=== PATIENT | female | born 1990 | race Caucasian/White ===

== ENCOUNTER 2017-05-16 06:38 | Inpatient (IN) | payer OTHER ==
[2017-05-13 10:48] VITALS: BMI 49.6
[~2017-05-16 06:38] MED LIST: BUPIVACAINE HCL/PF 0.25% (2.5MG/ML) 10 ML VIAL IJ ONE
[2017-05-16] MEDS ORDERED: SUCCINYLCHOLINE CHLORIDE 200 MG/10 ML VIAL ONE ×2 (07:35→08:47)
[2017-05-16] MEDS ORDERED: PROPOFOL 20 ML ONE ×4 (07:35→08:45)
[2017-05-16] MEDS ORDERED: MIDAZOLAM HCL 2 MG/2 ML SINGLE DOSE VIAL ONE (07:35)
[2017-05-16] MEDS ORDERED: ePHEDrine SULFATE 50 MG/1 ML AMPULE ONE (07:36)
[2017-05-16] MEDS ORDERED: ROCURONIUM BROMIDE 50 MG/5 ML VIAL ONE ×3 (07:39→09:06)
[2017-05-16] MEDS ORDERED: BUPIVACAINE HCL/PF 0.25% (2.5MG/ML) 10 ML VIAL ONE (08:45)
[2017-05-16] MEDS ORDERED: ESMOLOL HCL 10 ML ONE (09:19)
[2017-05-16] MEDS ORDERED: NEOSTIGMINE METHYLSULFATE 0.5 MG/ML - 10 ML MDV ONE ×2 (09:58→10:05)
[2017-05-16] MEDS ORDERED: BUPIVACAINE HCL/PF 0.25% (2.5MG/ML) 10 ML VIAL IJ ONE (10:05)
[2017-05-16] MEDS ORDERED: ONDANSETRON 4 MG/2 ML VIAL IVPB PRN (10:14)
[2017-05-16] MEDS ORDERED: HYDROmorphone HCL/PF 1 MG/ML VIAL (FOR PYXIS CHARGING ONLY) ONE (10:15)
[2017-05-16] MEDS ORDERED: KETOROLAC TROMETHAMINE 30 MG/1 ML VIAL ONE (10:17)
[2017-05-16] MEDS ORDERED: ONDANSETRON 4 MG/2 ML VIAL IVPUSH PRN (10:28)
[2017-05-16] MEDS: HYDROmorphone HCL CARPU-JECT 1 MG/1 ML DISP.SYRIN IVPUSH PRN ×4 (10:30→11:00)
[2017-05-16] MEDS ORDERED: METOCLOPRAMIDE HCL INJECTION 10 MG/2 ML VIAL IVPB SCH (10:30)
[2017-05-16] MEDS ORDERED: HYDROmorphone HCL CARPU-JECT 2 MG/1 ML DISP.SYRIN ONE ×2 (10:31→14:37)
[2017-05-16 11:01] LABS: MCH 27.3 pg (25.7-33.7); MCHC 32.7 g/dl (32.0-36.0); MEAN CELL VOLUME 83.5 fl (80-96); MEAN PLT VOLUME 7.2 fl (7.5-11.1); PLATELET COUNT 419 K/MM3 (134-434); RDW 14.9 % (11.6-15.6); WHITE BLOOD COUNT 21.6 K/mm3 (4.0-10.0)
[2017-05-16] MEDS: HYDROmorphone HCL CARPU-JECT 1 MG/1 ML DISP.SYRIN IVPB PRN ×3 (11:05→20:29)
[2017-05-16] MEDS ORDERED: DESFLURANE GAS 240 ML BOTTLE IH ONE (11:09)
[2017-05-16 11:30] LABS: ALBUMIN 3.4 g/dl (3.4-5.0); ANION GAP 9 (8-16); CALCIUM 8.4 mg/dL (8.5-10.1); CO2 24 mmol/L (21-32); CREATININE 0.6 mg/dL (0.55-1.02); GLUCOSE,RANDOM 166 mg/dL (74-106); SGOT/AST 44 U/L (15-37); SGPT/ALT 39 U/L (12-78)
[2017-05-16 11:31] LABS: ALK PHOS 92 U/L (45-117); BILIRUBIN,TOTAL 0.2 mg/dL (0.2-1.0); TOT PROT 6.3 g/dl (6.4-8.2)
[2017-05-16] MEDS ORDERED: HYDROmorphone HCL CARPU-JECT 1 MG/1 ML DISP.SYRIN IVPUSH PRN (12:13)
[2017-05-16 12:52] LABS: TOTAL CELLS COUNTED 100
[2017-05-16 12:55] LABS: PLATELET ESTIMATE ADEQUATE
[2017-05-16] MEDS: SODIUM CHLORIDE 1,000 ML IV SCH (14:00)
[2017-05-16] MEDS: METOCLOPRAMIDE HCL INJECTION 10 MG/2 ML VIAL IVPB SCH ×2 (18:31→21:10)
--- NOTE | 2017-05-16 18:55 | HOSP ---
Subjective - Review of Symptoms Subjective: Called by RN. 26 yo F s/p gastric sleeve complaining of chest pain. Pain began 15 minutes ago. It is mid chest, substernal, non radiating, pleuritic, 10/10, pressure like. Patient denies any SOB, n/v, or any other symptoms. Patient is in pain. Physical examination: General- NAD CV- s1/s2 RRR Lungs- CTAB A/P -Stat EKG and troponins performed -RN to get a hold of primary team Physical Examination Vital Signs: Vital Signs Temperature 99.0 F 05/16/17 14:45 Pulse Rate 106 H 05/16/17 14:45 Respiratory Rate 16 05/16/17 14:45 Blood Pressure 117/65 05/16/17 14:45 O2 Sat by Pulse Oximetry (%) 97 05/16/17 14:35 Labs: CBC, BMP 05/16/17 10:57 05/16/17 10:57 Visit type - Emergency Visit Emergency Visit: No - New Patient This patient is new to me today: Yes Date on this admission: 05/16/17 - Critical Care Critical Care patient: No
[2017-05-16] MEDS: LACTATED RINGERS SOLUTION 1,000 ML IV SCH (19:17)
[2017-05-16] MEDS: FAMOTIDINE 20 MG/50 ML IVPB 50 ML IVPB SCH (21:10)
[2017-05-16] MEDS: ENOXAPARIN NA (PORCINE) 40 MG/0.4 ML DISP.SYRIN SQ SCH (21:10)
[2017-05-17] MEDS: METOCLOPRAMIDE HCL INJECTION 10 MG/2 ML VIAL IVPB SCH ×3 (02:45→15:02)
[2017-05-17] MEDS: HYDROmorphone HCL CARPU-JECT 1 MG/1 ML DISP.SYRIN IVPB PRN ×2 (06:27→10:54)
[2017-05-17 06:55] LABS: MCH 27.3 pg (25.7-33.7); MCHC 32.7 g/dl (32.0-36.0); MEAN CELL VOLUME 83.6 fl (80-96); MEAN PLT VOLUME 7.8 fl (7.5-11.1); PLATELET COUNT 389 K/MM3 (134-434); RDW 14.5 % (11.6-15.6); WHITE BLOOD COUNT 18.6 K/mm3 (4.0-10.0)
[2017-05-17 07:29] LABS: ALBUMIN 3.1 g/dl (3.4-5.0); ALK PHOS 83 U/L (45-117); ANION GAP 9 (8-16); BILIRUBIN,TOTAL 0.5 mg/dL (0.2-1.0); CO2 27 mmol/L (21-32); CREATININE 0.4 mg/dL (0.55-1.02); GLUCOSE,RANDOM 86 mg/dL (74-106); SGOT/AST 33 U/L (15-37); SGPT/ALT 28 U/L (12-78); TOT PROT 5.7 g/dl (6.4-8.2)
[2017-05-17] MEDS: ENOXAPARIN NA (PORCINE) 40 MG/0.4 ML DISP.SYRIN SQ SCH (09:16)
[2017-05-17] MEDS: FAMOTIDINE 20 MG/50 ML IVPB 50 ML IVPB SCH (09:16)
--- NOTE | 2017-05-17 09:32 | OP ---
DATE OF OPERATION: 05/16/2017 PREOPERATIVE DIAGNOSIS: Morbid obesity. POSTOPERATIVE DIAGNOSIS: Morbid obesity. PROCEDURE PERFORMED: 1. Laparoscopic vertical sleeve gastrectomy. 2. Diagnostic laparoscopy. OPERATING SURGEON: Kaylan Johnson MD PACKAGING DESIGN ENGINEER: Serge Ying MD ANESTHESIA: General. OPERATIVE PROCEDURE: The patient was brought into the operating room, placed on the OR table in the supine position. All precautions were taken initially including padding for the back and the feet, and Venodyne boots were placed on both lower extremities. At that point, the abdomen was prepped and draped in the usual manner. A Veress needle was placed in the left upper quadrant, and a pneumoperitoneum was established. A No. 12 bladeless trocar was placed in the left upper quadrant. Through that trocar, a laparoscopic camera was placed. Under direct vision, a No. 15 bladeless trocar was placed in the midline in a supraumbilical position followed by a No. 5 bladeless trocar in the right upper quadrant and a No. 5 bladeless trocar 2 fingerbreadths below the left costal margin. A Jim Liver Retractor was then placed in the epigastrium to retract the left lobe of the liver. The patient was then placed in 20-degree reverse Trendelenburg position by Anesthesia. The pylorus was noted on the distal stomach, and 6 cm were measured proximally from that point. Here on the greater curve, the operating surgeon lifted the stomach towards the anterior abdominal wall. The insurance account assistant surgeon retracted the gastrocolic ligament inferiorly. The LigaSure device was used to dissect the gastrocolic ligament off the greater curve of the stomach. This continued in a superior and vertical direction along the greater curvature until a final short gastric vessel between the superior pole spleen and the proximal fundus was divided. At this point, the No. 40 bougie, which had been started by Anesthesia before the procedure, was now advanced to the distal stomach. With the bougie held, curved towards the pylorus, a series of dayami were performed, the first two dayami being black-load, 6 cm in length, along the bougie. This was followed by a series of purple-load dayami, also 6 cm in length, and continued until the final staple was fired in the left upper quadrant, and the greater curve was now completely detached from the lesser curve. It should be noted that prior to firing each staple, both the anterior and posterior bains were checked, that they were equal, and in the area of esophagogastric junction, approximately 1 to 1.5 cm serosa remained on the anterior and posterior surfaces. At this point, saline was placed around the staple line, and Anesthesia inserted air into the bougie, which showed the entire stomach distended down to the pylorus. No obstruction and no leaks were noted. At this point, the bougie was removed as the stomach was suctioned until clear. The greater curvature resector stomach was now removed with a No. 15 trocar site, and sent off the field as specimen. Under direct vision, the No. 15 and No. 12 trocar sites were closed with endo-closure device to prevent internal hernia event bleeding. Under direct vision, all trocars were removed and pneumoperitoneum was released. All trocar sites then received 0.25% Marcaine, were closed with 4-0 Biosyn in subcuticular fashion. Dressings were applied. Patient awoke from anesthesia and transferred out of the operating room to the recovery room in stable condition. ANESTHESIA: General. OPERATING SURGEON: Kaylan Johnson MD PACKAGING DESIGN ENGINEER: Serge Ying MD EXPECTED BLOOD LOSS: 30 mL. Patient transferred to the recovery room in stable condition. KAYLAN JOHNSON M.D. EVELYN/[id number]
[2017-05-17] MEDS: SODIUM CHLORIDE 1,000 ML IV SCH (10:53)
[2017-05-17] MEDS: LACTATED RINGERS SOLUTION 1,000 ML IV SCH (10:54)
--- NOTE | 2017-05-17 12:14 | PATH ---
Surgical Pathology Report Patient Name: JEN SUAZO [facility]. Rec. #: [id number] /Age/Gender: 1990 (Age: 26) / F Account: [id number] Location: [facility] Taken: 05/16/2017 Received: 05/16/2017 Reported: 05/17/2017 Physicians: Faraz Johnson M.D. Specimen(s) Received GREATER CURVATURE OF STOMACH Clinical History Morbid obesity Final Diagnosis STOMACH, GREATER CURVATURE, LAPAROSCOPIC VERTICAL SLEEVE GASTRECTOMY: PORTION OF STOMACH WITH MILD CHRONIC GASTRITIS. IMMUNOSTAIN FOR H. PYLORI IS NEGATIVE FOR ORGANISMS. Electronically Signed Homer Carbajal M.D. Gross Description Received in formalin labelled "greater curvature of the stomach" is 20 cm long x 11 cm in circumference portion of stomach consistent with a sleeve gastrectomy specimen. The serosa is smooth and glistening with no lesions identified. Examination of the mucosa reveals preserved mucosal folds. No focal lesions are identified. Human Resources Team Member sections are submitted in one cassette. [facility] [[email or web address]05/16/2017 [facility]/05/16/2017
--- NOTE | 2017-05-17 13:53 | PN ---
Progress Note (short form) - Note Progress Note: POD #1 - s/p laparoscopic gastric sleeve under general anesthesia. Pt. doing well, resting comfortably in bed. VSS. No complaints. Good pain control. No apparent anesthetic complications noted. Continue current care.
[2017-05-17 14:17] VITALS: TEMP 98.3
[2017-05-17 14:19] VITALS: BP 133/75; PULSE 87
--- NOTE | 2017-05-17 17:16 | PN ---
Progress Note (short form) - Note Progress Note: POD#1 Pt doing well Ambulating easily P-76-96 today BP-133/75 Had Epigastric pain last evening EKG, Troponin -WNL No N/V UGI-no leak, no obstruction P/E- all trocar sites clean, dry WBC-18.6 (decreased from 21.4) H/H- 12.6/38.5 Kushal PO clear liquids-3 oz po tid P- D/C pt home Clear liquids- 3 oz PO 4-5 times per day F/U with Dr Johnson on 05/26/17
[2017-05-17] MEDS ORDERED: oxyCODONE HCL 5 MG TABLET PO PRN (17:20)
[2017-05-17] MEDS ORDERED: SODIUM CHLORIDE 1,000 ML IV SCH (17:30)
--- NOTE | 2017-05-18 11:16 | EKG ---
Test Reason : Blood Pressure : / mmHG Vent. Rate : 100 BPM Atrial Rate : 100 BPM P-R Int : 174 ms QRS Dur : 090 ms QT Int : 356 ms P-R-T Axes : 027 042 031 degrees QTc Int : 459 ms NORMAL SINUS RHYTHM NORMAL ECG WHEN COMPARED WITH ECG OF 12-MAY-2017 13:32, NO SIGNIFICANT CHANGE WAS FOUND Confirmed by KATHYA DOSS MD ([id number]) on 05/18/2017 11:16:22 AM Referred By: Faraz Johnson Confirmed By:KATHYA DOSS MD
== END 2017-05-17 17:47 | disposition home or self-care (01) | DRG 621 ==
LOC: JSAMEDAYSX 06:38 → EDSTATUS 08:00 → J2W 15:24
PROVIDERS: ADMIT Surgery; ATTEND Surgery
PROC: 0WJP4ZZ Inspection of Gastrointestinal Tract, Percutaneous Endoscopic Approach (ICD-10-PCS; 2017-05-16)
PROC: 0DB64Z3 Excision of Stomach, Percutaneous Endoscopic Approach, Vertical (ICD-10-PCS; principal; 2017-05-16 08:00)
DX: E66.01 Morbid (severe) obesity due to excess calories (principal); Z68.42 Body mass index [BMI] 45.0-49.9, adult; R10.13 Epigastric pain
CPT/HCPCS: 36415; 74241-TC; 80053; 84484; 84703; 85027; 86850; 86900; 86901; 88305-TC; 93005; 93010; 94010; 94760